=== PATIENT | male | born 1955 | race Caucasian/White ===

== ENCOUNTER → 2021-04-10 | Day surgery (SDC) | payer OTHER ==
[~2021-04-10] VITALS: Ht 177.8 cm; Wt 83.9 kg
[~2021-04-10] MED LIST: NORCO 5-325 TA1 EACH PO; ONDANSETRON ODT8 MG PO; PRAVACHOL20 MG PO; PRINIVIL10 MG PO
[2021-04-10 08:12] LABS: HCT 42.2 % (42.0-52.0); HGB 14.6 g/dl (13.2-18.0); MCH 30.3 pg (25.0-31.0); MCHC 34.6 g/dL (32.0-36.0); MCV 87.6 fL (78.0-100.0); MPV 9.4 fL (6.0-9.5); RBC 4.82 M/uL (4.70-6.00); RDW 13.2 % (11.5-14.0); WBC 5.4 K/uL (4.0-10.5)
[2021-04-10 08:20] LABS: BILIRUBIN - TOTAL 0.5 mg/dL (0.2-1.0); BUN/CREAT RATIO (CALC) 19.5 RATIO; CREATININE 0.82 mg/dL (0.67-1.17); GLOBULIN (CALCULATION) 3.5 g/dL; POTASSIUM 4.3 mmol/L (3.5-5.1); TOTAL PROTEIN 7.5 g/dL (6.4-8.2)
== END | disposition home or self-care (01) ==
LOC: FAS 07:23
PROVIDERS: Surgery
DX: K64.1 Second degree hemorrhoids (principal); K57.90 Diverticulosis of intestine, part unspecified, without perforation or abscess without bleeding; I10 Essential (primary) hypertension; E78.00 Pure hypercholesterolemia, unspecified; E55.9 Vitamin D deficiency, unspecified; Z80.0 Family history of malignant neoplasm of digestive organs; Z83.3 Family history of diabetes mellitus
CPT/HCPCS: 36415; 80053; J1100; J2250; J2704; J7120